=== PATIENT | female | born 1985 | race Caucasian/White ===

== ENCOUNTER 2025-05-24 05:41 | Inpatient (IN) | payer SELFPAY ==
[2025-05-24] MEDS: Ondansetron 4 MG/2 ML SDV IVPUSH ONE (06:01)
[2025-05-24 06:04] LABS: BASOPHILS ABSOLUTE AUTO 0.0 x10-3/uL (0.0-0.1); BASOPHILS PERCENT AUTO 0.7 % (0.2-1.5); EOSINOPHILS ABSOLUTE AUTO 0.2 x10-3/uL (0.0-0.8); EOSINOPHILS PERCENT AUTO 3.3 % (0.6-8.1); LYMPHOCYTES ABSOLUTE AUTO 2.4 x10-3/uL (1.0-4.4); LYMPHOCYTES PERCENT AUTO 35.1 % (18.4-52.1); MEAN PLATELET VOLUME 7.4 fL (7.1-12.4); MONOCYTES ABSOLUTE AUTO 0.4 x10-3/uL (0.3-1.0); MONOCYTES PERCENT AUTO 5.2 % (4.4-15.7); NEUTROPHILS ABSOLUTE AUTO 3.7 x10-3/uL (1.5-6.3); NEUTROPHILS PERCENT AUTO 55.7 % (30.8-76.2); PLATELET COUNT,PLT 493 x10(3)uL (151-488); RED CELL DISTRIBUTION WIDTH 17.2 % (12.3-16.5); WHITE BLOOD CELL COUNT,WBC 6.7 x10-3/uL (3.0-10.3)
[2025-05-24 06:08] LABS: BLOOD UREA NITROGEN,BUN 12 mg/dL (7-18); CARBON DIOXIDE,CO2 25 mmol/L (21-32); CHLORIDE,CL 105 mmol/L (100-110); CREATININE 1.1 mg/dL (0.55-1.02); ESTIMATED GFR 66 mL/min (>60); GLUCOSE RANDOM 139 mg/dL (80-116); POTASSIUM,K 3.7 mmol/L (3.5-5.3); SODIUM,NA 143 mmol/L (135-145)
[2025-05-24] MEDS: Promethazine 25 MG/ML SDV IM ONE (06:13)
[2025-05-24 06:14] LABS: A/G RATIO 0.9; ALANINE AMINOTRANSFERASE,ALT 30 U/L (12-36); ASPARTATE AMNIOTRANSFERASE,AST 23 IU/L (5-25); BILIRUBIN TOTAL 0.3 mg/dL (0.1-1.3); PROTEIN TOTAL,TP 8.7 g/dL (6.0-8.0)
[2025-05-24 06:25] LABS: RED BLOOD CELL COUNT 4.78 x10(6)uL (3.60-5.20)
[2025-05-24] MEDS: Prochlorperazine 10 MG/2 ML SDV IVPUSH ONE ×2 (07:17→15:10)
[2025-05-24] MEDS: Iopamidol 755 Mg/ML 100 ML Bottle IV SCH (08:37)
[2025-05-24 10:01] LABS: PLATELET COUNT,PLT 96.0 x10(3)uL (151-488); RED BLOOD CELL COUNT 4.79 x10(6)uL (3.60-5.20); RED CELL DISTRIBUTION WIDTH 18.3 % (12.3-16.5); WHITE BLOOD CELL COUNT,WBC 7.5 x10-3/uL (3.0-10.3)
[2025-05-24] MEDS ORDERED: Prochlorperazine 10 MG/2 ML SDV IVPUSH ONE (13:00)
[2025-05-24] MEDS ORDERED: Prochlorperazine 5 MG in Sodium Chloride 0.9% 50 ML IV PRN (19:00)
[2025-05-24 20:12] LABS: BASOPHILS ABSOLUTE AUTO 0.0 x10-3/uL (0.0-0.1); BASOPHILS PERCENT AUTO 0.3 % (0.2-1.5); EOSINOPHILS ABSOLUTE AUTO 0.0 x10-3/uL (0.0-0.8); EOSINOPHILS PERCENT AUTO 0.4 % (0.6-8.1); LYMPHOCYTES ABSOLUTE AUTO 1.1 x10-3/uL (1.0-4.4); LYMPHOCYTES PERCENT AUTO 22.5 % (18.4-52.1); MEAN PLATELET VOLUME 7.1 fL (7.1-12.4); MONOCYTES ABSOLUTE AUTO 0.3 x10-3/uL (0.3-1.0); MONOCYTES PERCENT AUTO 6.6 % (4.4-15.7); NEUTROPHILS ABSOLUTE AUTO 3.6 x10-3/uL (1.5-6.3); NEUTROPHILS PERCENT AUTO 70.2 % (30.8-76.2); PLATELET COUNT,PLT 398 x10(3)uL (151-488); RED CELL DISTRIBUTION WIDTH 17.5 % (12.3-16.5); WHITE BLOOD CELL COUNT,WBC 5.1 x10-3/uL (3.0-10.3)
[2025-05-24 20:19] LABS: RED BLOOD CELL COUNT 4.28 x10(6)uL (3.60-5.20)
[2025-05-24] MEDS: LIDOCAINE PATCH TRDERM SCH (21:17)
[2025-05-24] MEDS ORDERED: LORazepam 2 MG/ML SDV IVPUSH PRN (22:34)
[2025-05-24] MEDS ORDERED: Naloxone 0.4 MG/ML SDV IVPUSH PRN (22:34)
[2025-05-25 06:32] LABS: BASOPHILS ABSOLUTE AUTO 0.0 x10-3/uL (0.0-0.1); BASOPHILS PERCENT AUTO 1.0 % (0.2-1.5); EOSINOPHILS ABSOLUTE AUTO 0.1 x10-3/uL (0.0-0.8); EOSINOPHILS PERCENT AUTO 2.7 % (0.6-8.1); LYMPHOCYTES ABSOLUTE AUTO 1.5 x10-3/uL (1.0-4.4); LYMPHOCYTES PERCENT AUTO 32.0 % (18.4-52.1); MEAN PLATELET VOLUME 7.4 fL (7.1-12.4); MONOCYTES ABSOLUTE AUTO 0.3 x10-3/uL (0.3-1.0); MONOCYTES PERCENT AUTO 7.4 % (4.4-15.7); NEUTROPHILS ABSOLUTE AUTO 2.6 x10-3/uL (1.5-6.3); NEUTROPHILS PERCENT AUTO 56.9 % (30.8-76.2); PLATELET COUNT,PLT 366 x10(3)uL (151-488); RED CELL DISTRIBUTION WIDTH 17.5 % (12.3-16.5); WHITE BLOOD CELL COUNT,WBC 4.6 x10-3/uL (3.0-10.3)
[2025-05-25 06:41] LABS: GLUCOSE,URINE NORMAL (NORMAL); OCCULT BLOOD,URINE NEGATIVE (NEGATIVE)
[2025-05-25 06:44] LABS: A/G RATIO 0.9; ALANINE AMINOTRANSFERASE,ALT 20 U/L (12-36); ASPARTATE AMNIOTRANSFERASE,AST 20 IU/L (5-25); BILIRUBIN TOTAL 0.3 mg/dL (0.1-1.3); BLOOD UREA NITROGEN,BUN 9 mg/dL (7-18); CARBON DIOXIDE,CO2 25 mmol/L (21-32); CHLORIDE,CL 110 mmol/L (100-110); CREATININE 0.8 mg/dL (0.55-1.02); EST CRCL DRUG DOSING (CG) 82.33 mL/min; ESTIMATED GFR 97 mL/min (>60); GLUCOSE RANDOM 109 mg/dL (80-116); POTASSIUM,K 3.6 mmol/L (3.5-5.3); PROTEIN TOTAL,TP 7.3 g/dL (6.0-8.0); SODIUM,NA 144 mmol/L (135-145)
[2025-05-25 06:47] LABS: APPEARANCE,URINE SLIGHTLY CLOUDY (CLEAR)
[2025-05-25 06:48] LABS: SQUAMOUS EPITHELIAL CELLS,UR FEW (NS,R,O)
[2025-05-25 06:52] LABS: AMPHETAMINES SCREEN, URINE NEGATIVE (NEGATIVE); METHADONE SCREEN, URINE NEGATIVE (NEGATIVE); METHAMPHETAMINE SCREEN, URINE NEGATIVE (NEGATIVE); OXYCODONE SCREEN,URINE POSITIVE (NEGATIVE)
[2025-05-25 06:53] LABS: BUPRENORPHINE SCREEN,URINE NEGATIVE (NEGATIVE)
[2025-05-25 07:04] LABS: RED BLOOD CELL COUNT 4.07 x10(6)uL (3.60-5.20)
[2025-05-25] MEDS ORDERED: Lactated Ringers 1,000 ML IV SCH (10:15)
[2025-05-25] MEDS ORDERED: Propofol 200 MG/20 ML SDV IV ONE (11:47)
[2025-05-25] MEDS ORDERED: Ketamine 500 mg/10 ML MDV IV ONE (11:47)
[2025-05-25] MEDS ORDERED: Midazolam 1 MG/ML 2 ML SDV IV ONE (11:47)
[2025-05-25] MEDS: Acetaminophen/oxyCODONE 325-5 MG Tab PO PRN (11:54)
[2025-05-25] MEDS: LORazepam 2 MG/ML SDV IVPUSH STA (20:54)
[2025-05-26 06:53] LABS: BASOPHILS ABSOLUTE AUTO 0.0 x10-3/uL (0.0-0.1); BASOPHILS PERCENT AUTO 0.9 % (0.2-1.5); EOSINOPHILS ABSOLUTE AUTO 0.2 x10-3/uL (0.0-0.8); EOSINOPHILS PERCENT AUTO 5.0 % (0.6-8.1); LYMPHOCYTES ABSOLUTE AUTO 1.9 x10-3/uL (1.0-4.4); LYMPHOCYTES PERCENT AUTO 47.8 % (18.4-52.1); MEAN PLATELET VOLUME 7.1 fL (7.1-12.4); MONOCYTES ABSOLUTE AUTO 0.3 x10-3/uL (0.3-1.0); MONOCYTES PERCENT AUTO 6.4 % (4.4-15.7); NEUTROPHILS ABSOLUTE AUTO 1.6 x10-3/uL (1.5-6.3); NEUTROPHILS PERCENT AUTO 39.9 % (30.8-76.2); PLATELET COUNT,PLT 313 x10(3)uL (151-488); RED BLOOD CELL COUNT 3.68 x10(6)uL (3.60-5.20); RED CELL DISTRIBUTION WIDTH 17.3 % (12.3-16.5); WHITE BLOOD CELL COUNT,WBC 4.0 x10-3/uL (3.0-10.3)
[2025-05-26] MEDS ORDERED: Remove Patch *NICOTINE TRDERM ONE (21:00)
== END 2025-05-26 10:15 | disposition home or self-care (01) | DRG 378 ==
LOC: FB.ED 05:41 → FB.MS 12:23
PROVIDERS: ADMIT Internal Medicine; ATTEND Family Medicine
PROC: 0DJ08ZZ Inspection of Upper Intestinal Tract, Via Natural or Artificial Opening Endoscopic (ICD-10-PCS; principal; 2025-05-24)
DX: K92.0 Hematemesis (principal); N30.00 Acute cystitis without hematuria; K92.1 Melena; K21.9 Gastro-esophageal reflux disease without esophagitis; D64.9 Anemia, unspecified; E86.0 Dehydration; K44.9 Diaphragmatic hernia without obstruction or gangrene; D69.6 Thrombocytopenia, unspecified; Z88.8 Allergy status to other drugs, medicaments and biological substances; Z79.899 Other long term (current) drug therapy
CPT/HCPCS: 00731; 36415; 74177; 80053; 80307; 81001; 82272; 83690; 83735; 85025; 85027; 87086; 87088; 87230; 96361; 96372; 96374; 99222; 99232; 99238; 99285-25; A9270-GY; J0696; J0780; J2003; J2060; J2250; J2270; J2470; J2550; J2704; J3490; J7030; Q9967